=== PATIENT | female | born 1955 | race Two or more races ===

== ENCOUNTER 2024-03-20 10:00 | Emergency (ER) | payer OTHER ==
[2024-03-20 13:23] VITALS: BP 114/74; PULSE 65; RESP 16; TEMP 97.7; O2SAT 98
== END 2024-03-20 13:55 | disposition home or self-care (01) ==
LOC: ER 10:00
DX: S62.001A Unspecified fracture of navicular [scaphoid] bone of right wrist, initial encounter for closed fracture (principal); S42.294A Other nondisplaced fracture of upper end of right humerus, initial encounter for closed fracture; W01.0XXA Fall on same level from slipping, tripping and stumbling without subsequent striking against object, initial encounter; Y93.H2 Activity, gardening and landscaping; Y92.89 Other specified places as the place of occurrence of the external cause; Y99.8 Other external cause status
CPT/HCPCS: 73030; 73130